=== PATIENT | female | born 1975 | race Caucasian/White ===

== ENCOUNTER 2017-05-24 05:44 | Emergency (ER) | payer OTHER ==
[~2017-05-24] VITALS: Ht 162.6 cm; Wt 67.0 kg
[~2017-05-24 05:44] MED LIST: LEVO200T PO
[2017-05-24] MEDS ORDERED: PROPARACAINE OPHTH 0.5%, 15ML ONE (06:08)
[2017-05-24] MEDS ORDERED: FLUORESCEIN OPHTHALMIC 1 MG STRIP ONE (06:08)
[2017-05-24] MEDS ORDERED: FAMOTIDINE 20 MG TABLET ONE (06:16)
[2017-05-24] MEDS ORDERED: FAMOTIDINE 20 MG TABLET PO ONE (06:30)
[2017-05-24] MEDS ORDERED: FLUORESCEIN OPHTHALMIC 1 MG STRIP EACHEYE ONE (06:30)
[2017-05-24] MEDS ORDERED: PROPARACAINE OPHTH 0.5%, 15ML EACHEYE ONE (06:30)
[2017-05-24 07:08] VITALS: BP 90/56
== END 2017-05-24 07:09 | disposition home or self-care (01) ==
LOC: ED 06:39
DX: T78.40XA Allergy, unspecified, initial encounter (principal); H10.022 Other mucopurulent conjunctivitis, left eye; L03.213 Periorbital cellulitis; Y92.9 Unspecified place or not applicable
CPT/HCPCS: 99283; Q0177

== ENCOUNTER 2018-12-08 16:44 | Emergency (ER) | payer OTHER ==
[~2018-12-08] VITALS: Ht 162.6 cm; Wt 71.9 kg
[2018-12-08 17:36] LABS: BASOPHILS # (AUTO) 0.03 x10^3/uL (0-0.1); BASOPHILS % (AUTO) 0 % (0-1); EOSINOPHILS # (AUTO) 0.24 x10^3/uL (0-0.4); EOSINOPHILS % (AUTO) 3 % (1-7); LYMPHOCYTES # (AUTO) 3.41 x10^3/uL (1-3.4); LYMPHOCYTES % (AUTO) 44 % (22-44); MD NO; MEAN CORPUSCULAR HEMOGLOBIN 30.3 pg (27.0-34.8); MEAN CORPUSCULAR HGB CONC 33.9 g/dL (32.4-35.8); MEAN CORPUSCULAR VOLUME 89.4 fL (80-100); MEAN PLATELET VOLUME 9.2 fL (7.4-10.4); MONOCYTES # (AUTO) 0.55 x10^3/uL (0.2-0.8); MONOCYTES % (AUTO) 7 % (2-9); NEUTROPHILS # (AUTO) 3.46 x10^3/uL (1.8-6.8); NEUTROPHILS % (AUTO) 45 % (42-75); PLATELET COUNT 191 x10^3/uL (130-400); RED CELL DISTRIBUTION WIDTH 13.5 % (9.6-15.2)
[2018-12-08 17:42] LABS: ALBUMIN 3.7 g/dL (3.4-5.0); ANION GAP 8 mmol/L (5-15); CALCIUM 8.7 mg/dL (8.5-10.1); CHLORIDE 109 mmol/L (98-107); CREATININE 0.63 mg/dL (0.55-1.02)
--- NOTE | 2018-12-08 17:47 | NUR ---
PT ARRIVES TO ED WITH C/O OF NOT FEELING WELL AND SOME REPRODUCABLE CHEST PAIN. PT DENIES ANY RECENT TRUAMA OR SOB. PT HAS BEEN ILL FOR ABOUT 1 WEEK. PT CONNECTED TO MONITORS AND CALL LIGHT IN REACH. AWAITING FURTHER ORDERS. PT IS A/OX4 AND RR EVEN AND UNLABORED.
[2018-12-08 17:52] LABS: FREE T4 (FREE THYROXINE) 1.48 ng/dL (0.76-1.46); THYROID STIMULATING HORMONE 0.255 mIU/L (0.358-3.740)
[2018-12-08 19:00] VITALS: BP 115/75
== END 2018-12-08 19:03 | disposition home or self-care (01) ==
LOC: ED 18:15
DX: R20.2 Paresthesia of skin (principal); E03.9 Hypothyroidism, unspecified; M06.9 Rheumatoid arthritis, unspecified
CPT/HCPCS: 36415; 71045; 80048; 82040; 84439; 84443; 85025; 93005; 99284